=== PATIENT | female | born 1990 | race Hispanic/Latino ===

== ENCOUNTER 2018-09-11 09:34 | Inpatient (IN) | payer OTHER ==
[2018-09-11 09:57] VITALS: BMI 18.4
[2018-09-11] MEDS ORDERED: Sodium Chloride 0.9% 1,000 ML IV STA ×2 (10:27→11:41)
[2018-09-11 11:00] LABS: BASO % 0.4 % (0.0-2.0); EOS # 0.1 K/uL (0.0-0.7); EOS % 1.6 % (0.0-4.0); HEMOGLOBIN 10.2 g/dL (12.0-16.0); LYMPH # 0.7 K/uL (1.0-4.3); LYMPH % 9.7 % (20.0-40.0); MEAN CELL VOLUME 63.9 fl (81.0-99.0); MEAN CORPUSCULAR HGB CONC 31.3 g/dL (33.0-37.0); MEAN PLATELET VOLUME 9.7 fl (7.2-11.7); MONO # 0.5 K/uL (0.0-0.8); MONO % 6.5 % (0.0-10.0); NEUT # 6.2 K/uL (1.8-7.0); NEUT % 81.8 % (50.0-75.0); PLATELET COUNT 238 K/uL (130-400); RBC 5.08 Mil/uL (3.80-5.20); RED CELL DISTRIBUTION WIDTH 14.3 % (11.5-14.5); WHITE BLOOD COUNT 7.6 K/uL (4.8-10.8)
[2018-09-11 11:16] LABS: ALB/GLOB RATIO 1.5 (1.0-2.1); ALBUMIN 4.3 g/dL (3.5-5.0); ALT/SGPT 21 U/L (9-52); AST/SGOT 22 U/L (14-36); BLOOD UREA NITROGEN 9 mg/dl (7-17); GFR NON-AFRICAN AMERICAN > 60; LIPASE 797 U/L (23-300)
[2018-09-11 11:24] LABS: SQUAMOUS EPITHIAL < 1 /hpf (0-5); URINE BACTERIA OCC (<OCC); URINE BILIRUBIN NEGATIVE (NEGATIVE); URINE BLOOD NEGATIVE (NEGATIVE); URINE CLARITY SLIGHTY-CLOUDY (Clear); URINE COLOR YELLOW (YELLOW); URINE GLUCOSE (UA) NEG (NEGATIVE); URINE LEUKOCYTE ESTERASE NEG Leu/uL (Negative); URINE PROTEIN NEGATIVE (NEGATIVE); URINE UROBILINOGEN 0.2-1.0 mg/dL (0.2-1.0)
[2018-09-11 12:13] LABS: EOSINOPHIL 1 % (0-7); LYMPHOCYTE 12 % (20-50); MICROCYTOSIS MODERATE; MONOCYTE 6 % (0-10); NEUTROPHIL 80 % (42-75); PLATELET ESTIMATE NORMAL (NORMAL); REACTIVE LYMPHOCYTES 1 % (0-0); TOTAL CELLS COUNTED 100
[2018-09-11 12:14] LABS: HYPOCHROMIC SLIGHT; OVALOCYTES SLIGHT; SCHISTOCYTES SLIGHT; TEARDROP CELLS SLIGHT
--- NOTE | 2018-09-11 12:18 | ED PDOC ---
HPI: Abdomen Time Seen by Provider: 09/11/18 09:46 Chief Complaint (Nursing): Abdominal Pain Chief Complaint (Provider): Abdominal Pain History Per: Patient History/Exam Limitations: no limitations Onset/Duration Of Symptoms: Days (x2) Current Symptoms Are (Timing): Still Present Additional Complaint(s): 27 year old female presents to the emergency department with a complaint of diffuse abdominal pain that started at work last night. She reports 10/10 pain upon onset which lasted for 2 hours. Patient states she had improvement of pain overnight, however, symptoms did not fully resolve, pain now moderate and constant. She was evaluated at an Urgent Care then advised to go to ED for further evaluation. Otherwise, she denies fever, chills, nausea, or vomiting. PCP: Dr. Anabelle Law Past Medical History Reviewed: Historical Data, Nursing Documentation, Vital Signs Vital Signs: Last Vital Signs Temp 99 F 09/11/18 09:57 Pulse 98 H 09/11/18 09:57 Resp 17 09/11/18 09:57 BP 136/78 09/11/18 09:57 Pulse Ox 100 09/11/18 09:57 - Medical History PMH: No Chronic Diseases - Surgical History Surgical History: No Surg Hx - Family History Family History: States: Unknown Family Hx - Allergies Allergies/Adverse Reactions: Allergies Allergy/AdvReac Type Severity Reaction Status Date / Time morphine Allergy RASH Verified 09/11/18 10:22 Review of Systems ROS Statement: Except As Marked, All Systems Reviewed And Found Negative Constitutional: Negative for: Fever, Chills Gastrointestinal: Positive for: Abdominal Pain (diffuse). Negative for: Nausea, Vomiting Physical Exam - Reviewed Nursing Documentation Reviewed: Yes Vital Signs Reviewed: Yes - Physical Exam Appears: Positive for: No Acute Distress Head Exam: Positive for: ATRAUMATIC, NORMAL INSPECTION, NORMOCEPHALIC Skin: Positive for: Normal Color Eye Exam: Positive for: Normal appearance ENT: Positive for: Normal ENT Inspection. Negative for: Pharyngeal Erythema Neck: Positive for: Normal Cardiovascular/Chest: Positive for: Regular Rate, Rhythm Respiratory: Positive for: Normal Breath Sounds. Negative for: Respiratory Distress Gastrointestinal/Abdominal: Positive for: Soft. Negative for: Tenderness (diffuse, mild. (+) moderate tenderness in epigastrum) Back: Positive for: Normal Inspection. Negative for: L CVA Tenderness, R CVA Tenderness Extremity: Positive for: Normal ROM (upper/lower) Neurological/Psych: Positive for: Awake, Alert, Normal Tone - Laboratory Results Result Diagrams: 09/11/18 10:49 09/11/18 10:49 Lab Results: Total Bilirubin 0.6 mg/dl (0.2-1.3) 09/11/18 10:49 AST 22 U/L (14-36) 09/11/18 10:49 ALT 21 U/L (9-52) 09/11/18 10:49 Alkaline Phosphatase 53 U/L (38-126) 09/11/18 10:49 Total Protein 7.1 G/DL (6.3-8.2) 09/11/18 10:49 Albumin 4.3 g/dL (3.5-5.0) 09/11/18 10:49 Globulin 2.8 gm/dL (2.2-3.9) 09/11/18 10:49 Albumin/Globulin Ratio 1.5 (1.0-2.1) 09/11/18 10:49 Lipase 797 U/L (23-300) H 09/11/18 10:49 Urine Color Yellow (YELLOW) 09/11/18 10:49 Urine Clarity Slighty-cloudy (Clear) 09/11/18 10:49 Urine pH 6.0 (5.0-8.0) 09/11/18 10:49 Ur Specific [place] 1.005 (1.003-1.030) 09/11/18 10:49 Urine Protein Negative mg/dL (NEGATIVE) 09/11/18 10:49 Urine Glucose (UA) Neg mg/dL (NEGATIVE) 09/11/18 10:49 Urine Ketones Negative mg/dL (NEGATIVE) 09/11/18 10:49 Urine Blood Negative (NEGATIVE) 09/11/18 10:49 Urine Nitrate Negative (NEGATIVE) 09/11/18 10:49 Urine Bilirubin Negative (NEGATIVE) 09/11/18 10:49 Urine Urobilinogen 0.2-1.0 mg/dL (0.2-1.0) 09/11/18 10:49 Ur Leukocyte Esterase Neg Jonathan/uL (Negative) 09/11/18 10:49 Urine RBC (Auto) < 1 /hpf (0-3) 09/11/18 10:49 Urine Microscopic WBC 1 /hpf (0-5) 09/11/18 10:49 Ur Squamous Epith Cells < 1 /hpf (0-5) 09/11/18 10:49 Urine Bacteria Occ (<OCC) H 09/11/18 10:49 - ECG O2 Sat by Pulse Oximetry: 100 (RA) Pulse Ox Interpretation: Normal Medical Decision Making Medical Decision Making: Time: 1027 Initial Plan: * Labs with UA * IV fluids * Toradol IVP * NPO Time: 1140 --Labs reviewed: elevated lipase at 797 mg/dL. work-up for possible pancreatitis. Pt. reports social drinking, last drank 2d. ago. IV CT ordered. Pt. feeling better but still with mild diffuse upper abdominal pain. Case d/w covering for [place] and arrangements made to admit under service of Dr. Spain. Pt. agreeable to plan ---- Scribe Attestation: Documented by Odalis Ritter, acting as a scribe for Malissa Rios PA-C. Provider Scribe Attestation: All medical record entries made by the Scribe were at my direction and persona lly dictated by me. I have reviewed the chart and agree that the record accurately reflects my personal performance of the history, physical exam, medical decision making, and the department course for this patient. I have also personally directed, reviewed, and agree with the discharge instructions and disposition. Disposition - Clinical Impression Clinical Impression: Pancreatitis - Patient ED Disposition Is Patient to be Admitted: Yes Counseled Patient/Family Regarding: Studies Performed, Diagnosis - Disposition Disposition Time: 13:13 Condition: STABLE Forms: [facility] (Chinese)
[2018-09-11] MEDS ORDERED: Iohexol 300 100 ML IJ ONE (13:09)
[2018-09-11] MEDS ORDERED: Sodium Chloride 0.9% 50 ML IV ONE (13:09)
[2018-09-11] MEDS ORDERED: Sodium Chloride 0.9% 1,000 ML IV SCH (13:15)
[2018-09-11] MEDS ORDERED: Lactated Ringer's 1,000 ML IV SCH (13:15)
--- NOTE | 2018-09-11 16:05 | CT ---
Date of service: 09/11/2018 PROCEDURE: CT Abdomen and Pelvis with contrast HISTORY: abdominal pain, pancreatitis COMPARISON: None. TECHNIQUE: Contrast dose: 95 mL Omnipaque 300 Radiation dose: Total exam DLP = 307.57 mGy-cm. This CT exam was performed using one or more of the following dose reduction techniques: Automated exposure control, adjustment of the mA and/or kV according to patient size, and/or use of iterative reconstruction technique. FINDINGS: LOWER THORAX: Unremarkable. LIVER: Unremarkable. No gross lesion or ductal dilatation. GALLBLADDER AND BILE DUCTS: Unremarkable. PANCREAS: Trace peripancreatic stranding adjacent to the proximal body. SPLEEN: Unremarkable. ADRENALS: Unremarkable. No mass. KIDNEYS AND URETERS: Unremarkable. No hydronephrosis. No solid mass. VASCULATURE: Unremarkable. No aortic aneurysm. No aortic atherosclerotic calcification or mural plaque present. BOWEL: Unremarkable. No obstruction. No gross mural thickening. APPENDIX: Normal appendix. PERITONEUM: Unremarkable. No free fluid. No free air. LYMPH NODES: Unremarkable. No enlarged lymph nodes. BLADDER: Unremarkable. REPRODUCTIVE: Small amount pelvic fluid, likely physiologic BONES: No acute fracture. OTHER FINDINGS: None. IMPRESSION: Trace peripancreatic stranding compatible with acute pancreatitis. Small amount of fluid in the pelvis, likely physiologic.
[2018-09-11] MEDS: Lactated Ringer's 1,000 ML IV SCH ×3 (18:33→23:38)
[2018-09-11] MEDS ORDERED: Oxycodone/Acetaminophen 5/325 mg Tab PO PRN (18:58)
--- NOTE | 2018-09-12 03:07 | HP ---
REFERRING PHYSICIAN: Randall Cm of the [facility]. HISTORY OF PRESENT ILLNESS: This is a very pleasant 27-year-old young lady, who presented with acute onset yesterday about 10 p.m. with epigastric pain and discomfort that was not associated with any fever, chills, nausea, or vomiting or any diarrhea. She came to the emergency room this morning and was found to have a lipase level of 797, she was admitted with acute pancreatitis and referred to me for further evaluation. At the time of my evaluation, she was lying very comfortably in bed and very nontoxic appearing, chatting with her friend. She states she does have some pain and discomfort, but not enough to require any pain medication at the moment. She has not had at any time any other symptomatology other than this pain. It was band like in the upper abdomen earlier and now it is just in the epigastric area. She has never had any history of pancreatitis or GI disease in the past. ALLERGIES: SHE HAS AN ALLERGY TO MORPHINE, SHE STATES. MEDICATIONS: At home was noncontributory. PAST MEDICAL HISTORY: Negative. PAST SURGICAL HISTORY: Noncontributory. FAMILY HISTORY: She said her grandfather had pancreatitis last March. SOCIAL HISTORY: She denies any tobacco or drug use and only occasional alcohol, she states it is only, may be one drink at night because she is working as a solutions specialist, does not have the time to drink. PHYSICAL EXAMINATION: GENERAL: She is a well-developed and well-nourished young woman, awake, alert, and oriented x3, in no acute distress whatsoever. VITAL SIGNS: Stable. She is afebrile. ABDOMEN: Soft, positive bowel sounds. There is some tenderness on palpation in the upper abdomen, epigastric area but no palpable masses or lesions. LABORATORY DATA: Her laboratories were reviewed. Her CBC is remarkable for hemoglobin of 10.2 with hematocrit of 32.5. Otherwise, it is unremarkable. SMA-7 is unremarkable. LFTs were all normal, lipase 797. CAT scan of the abdomen and pelvis is unremarkable except for trace peripancreatic stranding compatible with acute pancreatitis. IMPRESSION AND PLAN: A 27-year-old young lady with acute pancreatitis of unclear etiology. There does not appear to be any gallstones on the CAT scan. She is not a heavy drinker. She has had a some type of viral syndrome or cold recently, questionable whether this is viral-induced pancreatitis. Be that it is she does look quite comfortable. I will simply keep her nothing by mouth, aggressive intravenous hydration since she has no other medical problems, and pain control. She does think she has MORPHINE ALLERGY, but she has taken Percocet in the past without any allergic reaction. Therefore, I will simply use Percocet one tablet every 6 hours on an as needed basis based on her telling me that she has taken it in the past without any issues. Therefore, we would stay away from Morphine per se or Dilaudid. She can have some ice chips. Otherwise, she is nothing by mouth. Repeat the labs in the morning and then we can start her diet depending on how she does from today to tomorrow. I will follow along with you. Thank you very much for this referral. Flavio Rodrigues MD
[2018-09-12 07:12] LABS: BASO % 0.4 % (0.0-2.0); EOS # 0.2 K/uL (0.0-0.7); EOS % 3.2 % (0.0-4.0); HEMOGLOBIN 9.1 g/dL (12.0-16.0); LYMPH # 1.3 K/uL (1.0-4.3); LYMPH % 23.7 % (20.0-40.0); MEAN CELL VOLUME 64.1 fl (81.0-99.0); MEAN CORPUSCULAR HEMOGLOBIN 19.9 pg (27.0-31.0); MONO # 0.4 K/uL (0.0-0.8); NEUT # 3.5 K/uL (1.8-7.0); NEUT % 64.7 % (50.0-75.0); RBC 4.58 Mil/uL (3.80-5.20); RED CELL DISTRIBUTION WIDTH 14.1 % (11.5-14.5); WHITE BLOOD COUNT 5.4 K/uL (4.8-10.8)
[2018-09-12 07:28] LABS: ALB/GLOB RATIO 1.4 (1.0-2.1); ALBUMIN 3.3 g/dL (3.5-5.0); ALT/SGPT 24 U/L (9-52); AST/SGOT 19 U/L (14-36); BLOOD UREA NITROGEN 4 mg/dl (7-17); CALCIUM 8.1 mg/dL (8.4-10.2); GFR NON-AFRICAN AMERICAN > 60; LIPASE 40 U/L (23-300)
[2018-09-12 16:37] VITALS: BP 124/82; PULSE 73; RESP 18; TEMP 97.8; O2SAT 99
--- NOTE | 2018-09-12 19:23 | CP.PCM.HP ---
History of Present Illness - History of Present Illness History of Present Illness: pt admitted for pancreatitis. had abd pain and nausda but is not resolved. no f/c, n/v/d at present. painc ontrolled. lipase on arrival noted nad today is 40. gi consult appriciated and cleared for adv of diet nad dc if tolerated. Present on Admission - Present on Admission Any Indicators Present on Admission: No Review of Systems - Gastrointestinal Gastrointestinal: As Per HPI, Abdominal Pain, Nausea Past Patient History - Past Medical History & Family History Past Medical History?: Yes - Past Social History Smoking Status: Never Smoked - CARDIAC Hx Cardiac Disorders: No - PULMONARY Hx Respiratory Disorders: No - NEUROLOGICAL Other/Comment: Hx of Dyslexia - HEENT Hx HEENT Problems: No - RENAL Hx Chronic Kidney Disease: No - ENDOCRINE/METABOLIC Hx Endocrine Disorders: No - HEMATOLOGICAL/ONCOLOGICAL Other/Comment: Thalasemia Trait - MUSCULOSKELETAL/RHEUMATOLOGICAL Hx Falls: No - GASTROINTESTINAL Other/Comment: Acid Reflux - GENITOURINARY/GYNECOLOGICAL Hx Sexually Transmitted Disorders: Yes Other/Comment: Hx of Ruptured Ovarian Cysts, Culposcopy X 3 - PSYCHIATRIC Hx Anxiety: Yes Hx Substance Use: No - SURGICAL HISTORY Hx Surgeries: Yes Other/Comment: knee surgery - ANESTHESIA Hx Anesthesia: Yes Hx Anesthesia Reactions: No Meds Allergies/Adverse Reactions: Allergies Allergy/AdvReac Type Severity Reaction Status Date / Time morphine Allergy RASH Verified 09/11/18 10:22 Physical Exam - Constitutional Appears: Well, Non-toxic, No Acute Distress - Head Exam Head Exam: ATRAUMATIC, NORMAL INSPECTION, NORMOCEPHALIC - Eye Exam Eye Exam: EOMI, Normal appearance, PERRL Pupil Exam: NORMAL ACCOMODATION, PERRL - ENT Exam ENT Exam: Mucous Membranes Moist, Normal Exam - Neck Exam Neck exam: Positive for: Normal Inspection - Respiratory Exam Respiratory Exam: Clear to Auscultation Bilateral, NORMAL BREATHING PATTERN - Cardiovascular Exam Cardiovascular Exam: REGULAR RHYTHM, RRR, +S1, +S2 - GI/Abdominal Exam GI & Abdominal Exam: Normal Bowel Sounds, Soft. absent: Tenderness - Extremities Exam Extremities exam: Positive for: full ROM, normal capillary refill, normal inspection, pedal pulses present - Back Exam Back exam: NORMAL INSPECTION - Neurological Exam Neurological exam: Alert, CN II-XII Intact, Normal Gait, Oriented x3, Reflexes Normal - Psychiatric Exam Psychiatric exam: Normal Affect, Normal Mood - Skin Skin Exam: Dry, Intact, Normal Color, Warm Results - Vital Signs Recent Vital Signs: Last Vital Signs Temp 97.8 F 09/12/18 16:36 Pulse 73 09/12/18 16:36 Resp 18 09/12/18 16:36 BP 124/82 09/12/18 16:36 Pulse Ox 99 09/12/18 16:36 - Labs Result Diagrams: 09/12/18 05:25 09/12/18 05:25 Labs: Laboratory Results - last 24 hr 09/12/18 09/12/18 05:25 05:25 WBC 5.4 RBC 4.58 Hgb 9.1 L Hct 29.4 L MCV 64.1 L MCH 19.9 L MCHC 31.0 L RDW 14.1 Plt Count 222 MPV 10.0 Neut % (Auto) 64.7 Lymph % (Auto) 23.7 [place] % (Auto) 8.0 Eos % (Auto) 3.2 Baso % (Auto) 0.4 Neut # (Auto) 3.5 Lymph # (Auto) 1.3 [place] # (Auto) 0.4 Eos # (Auto) 0.2 Baso # (Auto) 0.0 Sodium 137 Potassium 3.7 Chloride 105 Carbon Dioxide 20 L Anion Gap 16 BUN 4 L Creatinine 0.5 L Est GFR ( Amer) > 60 Est GFR (Non-Af Amer) > 60 Random Glucose 58 L Calcium 8.1 L Total Bilirubin 0.6 AST 19 ALT 24 Alkaline Phosphatase 44 Total Protein 5.7 L Albumin 3.3 L D Globulin 2.4 Albumin/Globulin Ratio 1.4 Lipase 40 Assessment & Plan (1) DVT prophylaxis Assessment and Plan: scd and ae hose ambulation Status: Acute (2) Pancreatitis Assessment and Plan: ivf gi full liquid today after lipase noted adv to low fat to be cleared for dc as per gi pain and nausea control Status: Acute Decision To Admit - Pt Status Changed To: Hospital Disposition Of: Inpatient - Admit Certification Admit to Inpatient:: After my assessment, the patient will require hosp italization for at least two midnights. This is because of the severity of symptoms shown, intensity of services needed, and/or the medical risk in this patient being treated as an outpatient. - . Bed Request Type: Med/Surg Admitting Physician: Wendy Spain
--- NOTE | 2018-09-12 19:24 | CP.PCM.DIS ---
Provider - Provider Date of Admission: 09/11/18 13:03 Attending physician: Wendy Spain MD Consults: 09/11/18 13:03 Gastroenterology Consult Stat Comment: Consulting Provider: Yunior Espinosa Consulting Physician: Yunior Espinosa Reason for Consult: pancreatitis Diagnosis - Discharge Diagnosis (1) DVT prophylaxis Status: Acute (2) Pancreatitis Status: Acute Hospital Course - Lab Results Lab Results: Most Recent Lab Values WBC 5.4 K/uL (4.8-10.8) 09/12/18 05:25 RBC 4.58 Mil/uL (3.80-5.20) 09/12/18 05:25 Hgb 9.1 g/dL (12.0-16.0) L 09/12/18 05:25 Hct 29.4 % (34.0-47.0) L 09/12/18 05:25 MCV 64.1 fl (81.0-99.0) L 09/12/18 05:25 MCH 19.9 pg (27.0-31.0) L 09/12/18 05:25 MCHC 31.0 g/dL (33.0-37.0) L 09/12/18 05:25 RDW 14.1 % (11.5-14.5) 09/12/18 05:25 Plt Count 222 K/uL (130-400) 09/12/18 05:25 MPV 10.0 fl (7.2-11.7) 09/12/18 05:25 Neut % (Auto) 64.7 % (50.0-75.0) 09/12/18 05:25 Lymph % (Auto) 23.7 % (20.0-40.0) 09/12/18 05:25 [place] % (Auto) 8.0 % (0.0-10.0) 09/12/18 05:25 Eos % (Auto) 3.2 % (0.0-4.0) 09/12/18 05:25 Baso % (Auto) 0.4 % (0.0-2.0) 09/12/18 05:25 Neut # (Auto) 3.5 K/uL (1.8-7.0) 09/12/18 05:25 Lymph # (Auto) 1.3 K/uL (1.0-4.3) 09/12/18 05:25 [place] # (Auto) 0.4 K/uL (0.0-0.8) 09/12/18 05:25 Eos # (Auto) 0.2 K/uL (0.0-0.7) 09/12/18 05:25 Baso # (Auto) 0.0 K/uL (0.0-0.2) 09/12/18 05:25 Neutrophils % (Manual) 80 % (42-75) H 09/11/18 10:49 Lymphocytes % (Manual) 12 % (20-50) L 09/11/18 10:49 Reactive Lymphs % 1 % (0-0) H 09/11/18 10:49 Monocytes % (Manual) 6 % (0-10) 09/11/18 10:49 Eosinophils % (Manual) 1 % (0-7) 09/11/18 10:49 Platelet Estimate Normal (NORMAL) 09/11/18 10:49 Hypochromasia (manual) Slight 09/11/18 10:49 Microcytosis (manual) Moderate 09/11/18 10:49 Tear Drop Cells Slight 09/11/18 10:49 Ovalocytes Slight 09/11/18 10:49 Schistocytes Slight 09/11/18 10:49 Sodium 137 mmol/l (132-148) 09/12/18 05:25 Potassium 3.7 MMOL/L (3.6-5.0) 09/12/18 05:25 Chloride 105 mmol/L (98-107) 09/12/18 05:25 Carbon Dioxide 20 mmol/L (22-30) L 09/12/18 05:25 Anion Gap 16 (10-20) 09/12/18 05:25 BUN 4 mg/dl (7-17) L 09/12/18 05:25 Creatinine 0.5 mg/dl (0.7-1.2) L 09/12/18 05:25 Est GFR ( Amer) > 60 09/12/18 05:25 Est GFR (Non-Af Amer) > 60 09/12/18 05:25 Random Glucose 58 mg/dL (65-105) L 09/12/18 05:25 Calcium 8.1 mg/dL (8.4-10.2) L 09/12/18 05:25 Total Bilirubin 0.6 mg/dl (0.2-1.3) 09/12/18 05:25 AST 19 U/L (14-36) 09/12/18 05:25 ALT 24 U/L (9-52) 09/12/18 05:25 Alkaline Phosphatase 44 U/L (38-126) 09/12/18 05:25 Total Protein 5.7 G/DL (6.3-8.2) L 09/12/18 05:25 Albumin 3.3 g/dL (3.5-5.0) L D 09/12/18 05:25 Globulin 2.4 gm/dL (2.2-3.9) 09/12/18 05:25 Albumin/Globulin Ratio 1.4 (1.0-2.1) 09/12/18 05:25 Lipase 40 U/L (23-300) 09/12/18 05:25 Urine Color Yellow (YELLOW) 09/11/18 10:49 Urine Clarity Slighty-cloudy (Clear) 09/11/18 10:49 Urine pH 6.0 (5.0-8.0) 09/11/18 10:49 Ur Specific [place] 1.005 (1.003-1.030) 09/11/18 10:49 Urine Protein Negative mg/dL (NEGATIVE) 09/11/18 10:49 Urine Glucose (UA) Neg mg/dL (NEGATIVE) 09/11/18 10:49 Urine Ketones Negative mg/dL (NEGATIVE) 09/11/18 10:49 Urine Blood Negative (NEGATIVE) 09/11/18 10:49 Urine Nitrate Negative (NEGATIVE) 09/11/18 10:49 Urine Bilirubin Negative (NEGATIVE) 09/11/18 10:49 Urine Urobilinogen 0.2-1.0 mg/dL (0.2-1.0) 09/11/18 10:49 Ur Leukocyte Esterase Neg Jonathan/uL (Negative) 09/11/18 10:49 Urine RBC (Auto) < 1 /hpf (0-3) 09/11/18 10:49 Urine Microscopic WBC 1 /hpf (0-5) 09/11/18 10:49 Ur Squamous Epith Cells < 1 /hpf (0-5) 09/11/18 10:49 Urine Bacteria Occ (<OCC) H 09/11/18 10:49 Discharge Exam - Head Exam Head Exam: ATRAUMATIC, NORMAL INSPECTION, NORMOCEPHALIC Discharge Plan - Follow Up Plan Condition: STABLE Disposition: HOME/ ROUTINE Instructions: Pancreatitis, How to Wash Your Hands Properly Additional Instructions: follow up with Dr Espinosa next week
== END 2018-09-12 18:25 | disposition home or self-care (01) | DRG 440 ==
LOC: H.ER 09:34 → H.ERHOLD 13:03 → H.MEDSURG1 16:38
PROVIDERS: ADMIT Family Medicine; ATTEND Family Medicine
DX: K85.90 Acute pancreatitis without necrosis or infection, unspecified (principal); Z88.5 Allergy status to narcotic agent